=== PATIENT | male | born 1945 | race Caucasian/White ===

== ENCOUNTER 2024-09-20 17:57 | Emergency (ER) | payer MEDICARE ==
[~2024-09-20] VITALS: Ht 165.1 cm; Wt 62.0 kg
[2024-09-20 18:02] VITALS: O2SAT 100
[2024-09-20 19:14] LABS: HEMATOCRIT. 34.7 % (42.0-52.0); HEMOGLOBIN. 10.9 g/dL (14.0-18.0); MEAN CORPUSCULAR HEMOGLOBIN 23.7 pg (28.0-32.0); MEAN CORPUSCULAR HGB CONC 31.5 g/dL (31.0-37.0); MEAN CORPUSCULAR VOLUME 75.3 fL (80.0-94.0); MEAN PLATELET VOLUME 10.2 fl (7.4-10.4); PLATELET 224 x1000/uL (130-400); RED BLOOD CELL COUNT 4.61 mill/uL (4.7-6.1); RED CELL DISTRIBUTION WIDTH 16.3 % (11.6-14.6); WHITE BLOOD COUNT 14.8 x1000/uL (4.5-11.0)
[2024-09-20 19:17] LABS: DIFFERENTIAL COMMENT 1
[2024-09-20 19:19] LABS: INR 0.9; PROTHROMBIN TIME 10.5 sec (9.6-11.0)
[2024-09-20 19:22] LABS: CHLORIDE 106 mEq/L (98-107); POTASSIUM 4.3 mEq/L (3.5-5.1); SODIUM 140 mEq/L (136-145)
[2024-09-20 19:23] LABS: CALCIUM 9.5 mg/dL (8.7-10.4); CARBON DIOXIDE 24 mEq/L (21-32)
[2024-09-20] MEDS: FAMOTIDINE 20MG/2ML VIAL IV STA (19:23)
[2024-09-20] MEDS: ONDANSETRON HCL 4MG/2ML INJ IV STA (19:23)
[2024-09-20 19:24] VITALS: TEMP 36.61404
[2024-09-20] MEDS: SODIUM CHLORIDE 0.9% 1,000 ML IV ONE (19:24)
[2024-09-20] MEDS: MAGNESIUM/ALUMINUM HYDROXIDE/SIMETHICONE 30ML UDC PO STA (19:24)
[2024-09-20 19:28] LABS: CREATININE 1.2 mg/dL (0.6-1.3); GLUCOSE 120 mg/dL (70-105); UREA NITROGEN BLOOD 17 mg/dL (9-23)
[2024-09-20 19:30] LABS: ALANINE AMINOTRANSFERASE 14 IU/L (10-49); ALBUMIN 4.9 g/dL (3.2-4.8); ASPARTATE AMINOTRANSFERASE 26 IU/L (<34)
[2024-09-20 19:31] LABS: BILIRUBIN TOTAL 0.3 mg/dL (0.1-1.0); PROTEIN TOTAL 7.8 g/dL (6.0-8.3)
[2024-09-20 19:37] LABS: BILIRUBIN DIRECT < 0.1 mg/dL (<=3.0)
[2024-09-20 20:06] LABS: PLATELET ESTIMATE NORMAL
[2024-09-20 20:07] LABS: ANISOCYTOSIS 1+; HYPOCHROMASIA 1+; MICROCYTOSIS 1+
[2024-09-20] MEDS ORDERED: PROT40 MT (21:11)
[2024-09-20] MEDS ORDERED: MAG-55 MT (21:15)
[2024-09-20] MEDS ORDERED: ONDA-239 PO (21:15)
[2024-09-20 22:29] VITALS: BP 126/77; PULSE 80; RESP 18; O2SAT 100
== END 2024-09-20 22:32 | disposition home or self-care (01) ==
LOC: ER 17:57
DX: R11.2 Nausea with vomiting, unspecified (principal); I10 Essential (primary) hypertension; Z79.899 Other long term (current) drug therapy; Z85.00 Personal history of malignant neoplasm of unspecified digestive organ; Z90.49 Acquired absence of other specified parts of digestive tract
CPT/HCPCS: 99285; 74176; 96374; 96361; 96375; 80076; 80048; 83690; 85025; 85610; 36415; J3490; J2405; J7030